=== PATIENT | male | born 1970 | race American Indian/Alaskan Native ===

== ENCOUNTER 2018-01-12 17:26 | Emergency (ER) | payer SELFPAY ==
[2018-01-12 17:40] VITALS: BP 144/89
--- NOTE | 2018-01-12 18:46 | XRay Report ---
FINAL REPORT EXAM: XR SHOULDER 2+V RT HISTORY: dislocation TECHNIQUE: Three views right shoulder PRIORS: None. FINDINGS: No fractures are identified. No dislocation seen. The acromioclavicular joint is intact. Adjacent bony and soft tissue structures are unremarkable. IMPRESSION: Negative shoulder series
== END 2018-01-12 23:11 | disposition left against medical advice (07) ==
LOC: ED 17:26
DX: M25.511 Pain in right shoulder (principal); Z53.21 Procedure and treatment not carried out due to patient leaving prior to being seen by health care provider